=== PATIENT | female | born 1950 | race Caucasian/White ===

== ENCOUNTER → 2018-01-03 10:01 | Outpatient (CLI) | payer OTHER, SELFPAY ==
--- NOTE | 2018-01-03 15:34 | DIET.PN ---
Met for an initial nutrition consultation. Pt desires assistance with losing wt. Has DM but feels that is well enough controlled and that wt loss will help with that. Reports she maxed out on wt while still working. Lost approx 10#/year to current wt. Since then has retired and 2 years ago left w/out any warning; divorce will be completed next Monday. Is tearful when discussing. After [facility] started exercisin hr Nita 2X/wk; 1-1.5 hr yoga 1-2X/wk and 40 min swimming 1-2X/wk for at least 5 days/wk of exercise. Brought with her a 3 day food record, showing 3 meals and 1 snack daily; many good choices: lean protein, whole grains, nuts/seeds. DX: Obesity HX: DM, on metformin and lantus HT: 5'3 WT HX: Highest wt 195# Wt last 2 years: 170# Today's WT: 172# (pt scale) BMI: 30.4 ASSESSMENT: Big lifestyle changes interrupted wt loss progress and pt finding it more difficult to lose wt in spite of exercise. Current diet includes many healthful choices; did not record quantities. Diet is low in vegetables and has several added sweets, mostly from beverages INTERVENTION: Critiqued execise regime and current diet. Provided education current exercise recs for wt loss after age of 49yr. Provided ed on healthy plate model; portioning foods and nutritional balance PLAN/GOAL: Keep track of food intake using healthy plate model for portion control; decrease intake of starchy foods and liquid carbs and increase non-starchy veg. Suggested adding one more day of exercise - possibly something for enjoyment: hiking, bicycling Will f/u in few weeks before pt goes to [facility] for month. Hopes to f/u after that but uncertain what changes will come with insurance with divorce.
== END ==
PROVIDERS: PCP Family Medicine; Visit Provider Family Medicine
DX: E66.9 Obesity, unspecified (principal); E11.9 Type 2 diabetes mellitus without complications; Z79.4 Long term (current) use of insulin
CPT/HCPCS: 97802

== ENCOUNTER → 2018-01-24 10:03 | Outpatient (CLI) | payer MEDICARE, SELFPAY ==
--- NOTE | 2018-01-24 11:20 | DIET.PN ---
Met for 2nd f/u consultation. Priyanka leaves for [place] [employer] next week for a month vacation. Has been under a lot of stress getting things in order following finalization of her divorce, including getting new medical coverage. On top of financial issues, got an ear infection (for which she cannot get a rxn and must use OTC meds) and her elia teacher quit at [employer], so is now in a muddle as to what her exercise schedule will be. Is researching options. In Jun will be eligable for the [employer] program so is hoping that will open up more options. Plans to do a lot of walking while in [place] and feels everything is in place now for her return and a new start once she's back home. Unfortanately, she willl no longer have medical insurance that will cover a dietitian services, so this will likely be our final visit. DX: Overweight/obese WT: 174# (up 2#) ASSESSMENT: Craving salty foods - probably r/t stress eating. Increased water retention may also be contributing to wt gain. Continues to use a healthy plate model for choosing/portioning foods and realizes she needs to reduce portions of grains while increasing non-starchy vegetables. Decreased exercise over last week has been a detriment to progress. INTERVENTION: Provided reinforcement for using healthy plate model; provided education on [employer] system of tracking food intake and graphing wt change to help with motivation. Encouraged to keep positive and keep researching exercise options to develop a realistic schedule when she returns from [facility]. PLAN/GOAL: continue to use healthy plate model for portioning, try tracking system when returns home if feels she needs more structure. No f/u planned at this time
== END ==
PROVIDERS: PCP Family Medicine; Visit Provider Family Medicine
DX: E66.9 Obesity, unspecified (principal)
CPT/HCPCS: 97803